=== PATIENT | female | born 1980 | race Caucasian/White ===

== ENCOUNTER 2020-09-24 15:08 | Emergency (ER) | payer SELFPAY | END 2020-09-24 18:33 | disposition left against medical advice (07) | PROVIDERS: Emergency Provider Internal Medicine | DX: R10.9 Unspecified abdominal pain (principal) ==

== ENCOUNTER 2021-07-19 14:36 | Emergency (ER) | payer OTHER, SELFPAY ==
--- NOTE | ~2021-07-19 | US_ITS ---
EXAMINATION: PELVIC ULTRASOUND - COMPLETE CLINICAL INFORMATION: Left lower quadrant pain. COMPARISON: CT dated 07/19/2021 TECHNIQUE: Transabdominal and transvaginal imaging of the pelvis performed utilizing grayscale and color Doppler technique with spectral analysis. FINDINGS: Uterus is normal in size and configuration measuring 9.1 x 5.3 x 5.5 cm. There is a 2.4 x 1.7 x 1.5 cm fibroid within the left uterine fundus. Endometrial signature measures 1.0 cm which is within normal limits. Nabothian cysts present within the cervix. There is a 4.6 x 3.8 x 3.5 cm cyst containing lacy reticular internal echoes compatible with a hemorrhagic cyst. The right ovary is splayed around the cyst shows normal arterial and venous waveforms. Right ovary is normal in size and appearance, also demonstrating normal arterial and venous waveforms. Small free fluid. US/US pelvic ovarian doppler IMPRESSION: * No evidence of ovarian torsion. * Left ovarian hemorrhagic cyst measuring 4.6 cm. No suspicious features. Follow-up for cysts of this size and appearance in females of reproductive age is not necessary unless clinically indicated. * Small uterine fibroid.
--- NOTE | ~2021-07-19 | US_ITS ---
EXAMINATION: PELVIC ULTRASOUND - COMPLETE CLINICAL INFORMATION: Left lower quadrant pain. COMPARISON: CT dated 07/19/2021 TECHNIQUE: Transabdominal and transvaginal imaging of the pelvis performed utilizing grayscale and color Doppler technique with spectral analysis. FINDINGS: Uterus is normal in size and configuration measuring 9.1 x 5.3 x 5.5 cm. There is a 2.4 x 1.7 x 1.5 cm fibroid within the left uterine fundus. Endometrial signature measures 1.0 cm which is within normal limits. Nabothian cysts present within the cervix. There is a 4.6 x 3.8 x 3.5 cm cyst containing lacy reticular internal echoes compatible with a hemorrhagic cyst. The right ovary is splayed around the cyst shows normal arterial and venous waveforms. Right ovary is normal in size and appearance, also demonstrating normal arterial and venous waveforms. Small free fluid. US/US pelvic complete IMPRESSION: * No evidence of ovarian torsion. * Left ovarian hemorrhagic cyst measuring 4.6 cm. No suspicious features. Follow-up for cysts of this size and appearance in females of reproductive age is not necessary unless clinically indicated. * Small uterine fibroid.
--- NOTE | ~2021-07-19 | CT_ITS ---
EXAMINATION: CT ABDOMEN AND PELVIS WITH CONTRAST CLINICAL INFORMATION: LLQ pain, rule out diverticulitis COMPARISON: None. TECHNIQUE: Multidetector volumetric imaging was performed from the superior aspect of the liver through the pubic symphysis following administration of 85 mL Omnipaque 300 intravenous contrast. Sagittal and coronal reformatted images were obtained on the technologist workstation.. This CT examination was performed using dose optimization techniques as appropriate, variously including the following: *Automated exposure control *Adjustment of mA and/or kV according to patient size (this includes techniques or standardized protocols for targeted exams where dose is matched to indication/reason for exam; i.e. extremities or head) *Use of iterative reconstruction technique DLP: 1076 mGy-cm FINDINGS: LUNG BASES: The visualized lung bases are unremarkable. LIVER, GALLBLADDER, AND BILIARY TREE: The liver is normal in size, shape, and attenuation. No focal hepatic lesion or biliary ductal dilatation is present. The gallbladder is unremarkable with no evidence of radiopaque gallstones, gallbladder wall thickening, or obvious pericholecystic inflammatory changes. PANCREAS: Unremarkable. SPLEEN: Low-attenuation 1.7 cm splenic cyst incidentally noted. ADRENAL GLANDS: Unremarkable. KIDNEYS AND URETERS: The kidneys are normal in size, shape, and attenuation. No hydronephrosis, hydroureter, or calculi seen. No perinephric stranding. BLADDER: Unremarkable. GASTROINTESTINAL TRACT: Sigmoid colon is decompressed. There is scattered diverticulosis. No obvious colonic wall thickening or pericolonic inflammatory change to suggest diverticulitis otherwise. ABDOMINAL WALL: No significant hernia is appreciated. LYMPHOVASCULAR STRUCTURES: No lymphadenopathy. The aorta is unremarkable. PELVIC VISCERA: Anteroverted uterus. Small hypodense probable fibroid in the anterior mid body the uterus. 4.7 cm low-attenuation cystic structure in the left adnexa. There is mild surrounding periadnexal fluid. This is in close proximity to the decompressed sigmoid colon fluid is be more associated with the adnexal structures OSSEOUS STRUCTURES: Unremarkable. CT/CT abdomen pelvis w con IMPRESSION: There is a 4.7 cm low-attenuation cystic structure in the left adnexa with surrounding fluid. Large physiologic cyst would be suspected in the patient of this age. There is surrounding fluid more than physiologic. Clinical correlation recommended. Consider pelvic ultrasound if needed. Scattered diverticulosis but no obvious diverticulitis.
--- NOTE | ~2021-07-19 | US_ITS ---
EXAMINATION: PELVIC ULTRASOUND - COMPLETE CLINICAL INFORMATION: Left lower quadrant pain. COMPARISON: CT dated 07/19/2021 TECHNIQUE: Transabdominal and transvaginal imaging of the pelvis performed utilizing grayscale and color Doppler technique with spectral analysis. FINDINGS: Uterus is normal in size and configuration measuring 9.1 x 5.3 x 5.5 cm. There is a 2.4 x 1.7 x 1.5 cm fibroid within the left uterine fundus. Endometrial signature measures 1.0 cm which is within normal limits. Nabothian cysts present within the cervix. There is a 4.6 x 3.8 x 3.5 cm cyst containing lacy reticular internal echoes compatible with a hemorrhagic cyst. The right ovary is splayed around the cyst shows normal arterial and venous waveforms. Right ovary is normal in size and appearance, also demonstrating normal arterial and venous waveforms. Small free fluid. US/US transvaginal IMPRESSION: * No evidence of ovarian torsion. * Left ovarian hemorrhagic cyst measuring 4.6 cm. No suspicious features. Follow-up for cysts of this size and appearance in females of reproductive age is not necessary unless clinically indicated. * Small uterine fibroid.
[2021-07-19 15:10] VITALS: BP 138/93; PULSE 84; RESP 18; TEMP 36.7; O2SAT 98; BMI 46.0
[2021-07-19 16:48] LABS: MANUAL DIFF FLAG NO
[2021-07-19 16:49] LABS: Basophils Absolute Auto 0.1 X10*3/uL (0.0-0.2); Basophils Percent Auto 0.7 % (0-2); Eosinophils Absolute Auto 0.1 X10*3/uL (0.0-0.4); Eosinophils Percent Auto 1.1 % (0-4); Hemoglobin 13.4 g/dl (12.0-16.0); Imm Gran Abs Auto 0.03 X10*3/uL (0.00-0.03); Imm Gran Pct Auto 0.3 % (0.0-0.4); Lymphocytes Percent Auto 28.8 % (20-40); Mean Corpuscular HGB Conc 32.7 g/dl (31.0-35.0); Mean Corpuscular Hemoglobin 27.5 pg (27.0-33.0); Mean Platelet Volume 9.8 fL (9.4-12.3); Monocytes Absolute Auto 0.6 X10*3/uL (0.1-1.2); Neutrophils Absolute Auto 6.5 x10*3/uL (2.0-8.3); Neutrophils Percent Auto 63.1 % (45-73); Platelet Count 410 X10*3/uL (160-400); Red Blood Count 4.88 X10*6/uL (4.20-5.50); Red Cell Distribution Width 13.3 % (11.0-16.0); White Blood Count 10.3 X10*3/uL (4.8-10.8)
[2021-07-19 16:51] LABS: Appearance Urine CLEAR; Color Urine YELLOW; Glucose Urine UA NEG (NEG); Leukocyte Esterase Urine NEG (NEG); Nitrite Urine NEG (NEG); UACC Culture Trigger NO; UPreg QC Valid YES; Urine Blood TRACE (NEG); Urine Ketones NEG (NEG); Urine Pregnancy NEGATIVE (NEGATIVE); Urine Protein NEG (NEG-TRACE)
[2021-07-19 16:58] LABS: Bacteria Urine 1+ /LPF; RBC Urine 0-2 /HPF (0); Squamous Epithelial Cell Urine 2+ /LPF; WBC Urine 0 /HPF (0-4)
[2021-07-19 17:03] LABS: Alanine Aminotransferase 13 U/L (0-31); Albumin Level 4.3 g/dL (3.5-5.0); Alkaline Phosphatase 91 U/L (39-117); Anion Gap 13 (12-20); Aspartate Amino Transferase 13 U/L (5-31); Bilirubin Total 0.4 mg/dL (0.0-1.0); Blood Urea Nitrogen 8 mg/dL (9-16); Calcium 9.6 mg/dL (8.4-10.2); Carbon Dioxide 23 mmol/L (22-29); Chloride 107 mmol/L (96-108); Creatinine Clr Calc Pharmacy 105.3; Estimated Glomerular Filt Rate > 60; Glucose Random 90 mg/dL (60-115); Potassium 4.3 mmol/L (3.3-5.1); Sodium 139 mmol/L (135-145); Total Protein 7.6 g/dL (6.5-8.0)
--- NOTE | 2021-07-19 20:58 | ED.ABDPAIN ---
HPI - Abdominal Pain General Chief Complaint: Abdominal Pain Stated Complaint: l side lower pain Time Seen by Provider: 07/19/21 20:44 Source: patient Mode of arrival: ambulatory Limitations: no limitations History of Present Illness HPI narrative: 40-year-old female who presents emergency department for evaluation of left lower quadrant pain x4 days. The pain is an intermittent, stabbing, cramping like pain which is 9/10 at its worse and is currently 7/10 in the emergency department. The patient states that pain feels similar to her diverticulitis that she has had in the past. She states she has had 3 episodes of diverticulitis, 1 episode she had perforation was hospitalized for several weeks but did not have surgery. The patient states that she has had constant nausea with no vomiting. The patient states that she does have an appetite but has been using clear liquids only but this is not improved her pain. The patient states she is constipated but did have a normal bowel movement this morning. The patient denied fever, chills, chest pain, shortness of breath, frequency, urgency, dysuria. Past surgical history: 2005. Related Data Allergies Allergy/AdvReac Type Severity Reaction Status Date / Time Sulfa (Sulfonamide Allergy Rash Verified 07/19/21 15:15 Antibiotics) Review of Systems Review of Systems Yes all other systems are reviewed and are negative Physical Exam Vital Signs: Vital Signs: Last Vital Signs Temp 98.4 F 07/19/21 23:20 Pulse 87 07/19/21 23:20 Resp 16 07/19/21 23:20 BP 133/70 07/19/21 23:20 Pulse Ox 97 07/19/21 23:20 BMI result Body Mass Index 46.0 Const: General: cooperative and no acute distress Orientation/consciousness: oriented to person and oriented to place Limitations: no limitations HENMT: Head: Yes normal to inspection, Yes normocephalic and Yes atraumatic Ears: external ears normal General nose exam: Normal external nose present Face and sinus: Yes normal facial exam Mouth: Normal oral and palatal mucosa present Throat: Yes posterior oropharynx normal Eyes: General: appearance normal, both eyes and all related structures Pupils: Equal, round and reactive pupils present Neck: Neck: Yes normal visual inspection, Yes no lymphadenopathy, Yes trachea midline and Yes supple Chest: Chest palpation & inspection: normal inspection of the chest and normal palpation of entire chest wall Resp: Effort & Inspection: normal respiratory effort and able to speak in complete sentences Auscultation: clear to auscultation bilaterally Cardio: Rate: regular rate Rhythm: regular rhythm Heart sounds: S1 normal heart sound present, S2 normal heart sound present and no murmurs GI: Inspection: Yes normal to inspection and Yes obesity Palpation (GI): Soft to palpation, Tenderness to palpation present (GI) in the LLQ (Moderate) and no guarding Auscultation: normal bowel sounds : General: Yes no CVA tenderness Back/Spine/Pelvis: Back: no CVA tenderness Skin: General skin exam: no rashes or lesions noted Neuro: General: oriented to person and oriented to place Cranial nerves: Yes CN's II-XII intact bilaterally and Yes Equal, round and reactive pupils present Cognition (Neuro): normal cognition Motor exam (neuro): 5/5 motor strength present throughout Extrem: General: Yes normal to inspection Psych: Appearance: grossly normal Speech and movement: Normal speech and movement present Affect: normal affect Attitude: cooperative Thought process: Normal thought process present Thought content: Normal thought content present Course Course Course Narrative: 40-year-old female who presents emergency department for evaluation of 4 days of left lower quadrant intermittent stabbing/cramping pain consistent with her previous diverticulitis. Patient's pain is currently 7/10 at the time my evaluation. Initial vital signs were normal. Examination did reveal left lower quadrant tenderness. Patient's pain was treated with Toradol 15 mg IV and her nausea was treated with Zofran 4 mg IV. The patient does not want any normal saline since she states this gives her headache. 2102: Laboratory evaluation: CBC, comprehensive metabolic panel normal. Urinalysis was unremarkable. Urine test was negative. I will obtain a CT scan the patient's abdomen pelvis to evaluate for diverticulitis/perforation/abscess. 0125: Patient's lipase was normal. The patient's CT scan of the abdomen pelvis did reveal a left 4.7 cm ovarian cyst with fluid around the cyst. There was diverticulosis but no evidence of diverticulitis. Duplex ultrasound of the patient's pelvis revealed no ovarian torsion, the patient does have a 4.6 cm left ovarian cyst which appears to be hemorrhagic. This may be the cause of the patient's pain. I did discuss this with the patient. Patient did get improvement with the IV Toradol. Patient was advised to take ibuprofen and Tylenol for the pain. She was given verbal and printed instructions and discharged home. MDM - Abdominal Pain Lab Data Result diagrams: 07/19/21 16:41 07/19/21 16:41 Labs: Lab Results 07/19/21 07/19/21 07/19/21 Range/Units 16:41 16:41 16:41 WBC 10.3 (4.8-10.8) X10*3/uL RBC 4.88 (4.20-5.50) X10*6/uL Hgb 13.4 (12.0-16.0) g/dl Hct 41.0 (37.0-47.0) % MCV 84.0 (80.0-98.0) fL MCH 27.5 (27.0-33.0) pg MCHC 32.7 (31.0-35.0) g/dl RDW 13.3 (11.0-16.0) % Plt Count 410 H (160-400) X10*3/uL MPV 9.8 (9.4-12.3) fL Immature Gran % (Auto) 0.3 (0.0-0.4) % Neut % (Auto) 63.1 (45-73) % Lymph % (Auto) 28.8 (20-40) % [place] % (Auto) 6.0 (2-11) % Eos % (Auto) 1.1 (0-4) % Baso % (Auto) 0.7 (0-2) % Lymph # (Auto) 3.0 (1.2-4.9) X10*3/uL [place] # (Auto) 0.6 (0.1-1.2) X10*3/uL Eos # (Auto) 0.1 (0.0-0.4) X10*3/uL Baso # (Auto) 0.1 (0.0-0.2) X10*3/uL Abs Immat Gran (auto) 0.03 (0.00-0.03) X10*3/uL Absolute Neuts (auto) 6.5 (2.0-8.3) x10*3/uL Absolute Nucleated RBC 0.000 (0.0-0.012) X10*3/uL Nucleated RBC % (auto) 0.0 (0.0-0.2) /100WBC Sodium 139 (135-145) mmol/L Potassium 4.3 (3.3-5.1) mmol/L Chloride 107 (96-108) mmol/L Carbon Dioxide 23 (22-29) mmol/L Anion Gap 13 (12-20) BUN 8 L (9-16) mg/dL Creatinine 0.89 (0.5-1.4) mg/dL Estim Creat Clear Calc 105.3 Estimated GFR > 60 Random Glucose 90 (60-115) mg/dL Calcium 9.6 (8.4-10.2) mg/dL Total Bilirubin 0.4 (0.0-1.0) mg/dL AST 13 (5-31) U/L ALT 13 (0-31) U/L Alkaline Phosphatase 91 (39-117) U/L Total Protein 7.6 (6.5-8.0) g/dL Albumin 4.3 (3.5-5.0) g/dL Lipase 37 (8-78) U/L Urine Color YELLOW Urine Appearance CLEAR Urine pH 6.0 (5.0-8.0) Ur Specific [place] 1.010 (1.005-1.025) Urine Protein NEG (NEG-TRACE) MG/DL Urine Glucose (UA) NEG (NEG) MG/DL Urine Ketones NEG (NEG) MG/DL Urine Blood TRACE (NEG) Urine Nitrite NEG (NEG) Ur Leukocyte Esterase NEG (NEG) Urine RBC 0-2 (0) /HPF Urine WBC 0 (0-4) /HPF Ur Squamous Epith Cells 2+ /LPF Urine Bacteria 1+ /LPF Urine Test (NEGATIVE) 07/19/21 Range/Units 16:41 WBC (4.8-10.8) X10*3/uL RBC (4.20-5.50) X10*6/uL Hgb (12.0-16.0) g/dl Hct (37.0-47.0) % MCV (80.0-98.0) fL MCH (27.0-33.0) pg MCHC (31.0-35.0) g/dl RDW (11.0-16.0) % Plt Count (160-400) X10*3/uL MPV (9.4-12.3) fL Immature Gran % (Auto) (0.0-0.4) % Neut % (Auto) (45-73) % Lymph % (Auto) (20-40) % [place] % (Auto) (2-11) % Eos % (Auto) (0-4) % Baso % (Auto) (0-2) % Lymph # (Auto) (1.2-4.9) X10*3/uL [place] # (Auto) (0.1-1.2) X10*3/uL Eos # (Auto) (0.0-0.4) X10*3/uL Baso # (Auto) (0.0-0.2) X10*3/uL Abs Immat Gran (auto) (0.00-0.03) X10*3/uL Absolute Neuts (auto) (2.0-8.3) x10*3/uL Absolute Nucleated RBC (0.0-0.012) X10*3/uL Nucleated RBC % (auto) (0.0-0.2) /100WBC Sodium (135-145) mmol/L Potassium (3.3-5.1) mmol/L Chloride (96-108) mmol/L Carbon Dioxide (22-29) mmol/L Anion Gap (12-20) BUN (9-16) mg/dL Creatinine (0.5-1.4) mg/dL Estim Creat Clear Calc Estimated GFR Random Glucose (60-115) mg/dL Calcium (8.4-10.2) mg/dL Total Bilirubin (0.0-1.0) mg/dL AST (5-31) U/L ALT (0-31) U/L Alkaline Phosphatase (39-117) U/L Total Protein (6.5-8.0) g/dL Albumin (3.5-5.0) g/dL Lipase (8-78) U/L Urine Color Urine Appearance Urine pH (5.0-8.0) Ur Specific [place] (1.005-1.025) Urine Protein (NEG-TRACE) MG/DL Urine Glucose (UA) (NEG) MG/DL Urine Ketones (NEG) MG/DL Urine Blood (NEG) Urine Nitrite (NEG) Ur Leukocyte Esterase (NEG) Urine RBC (0) /HPF Urine WBC (0-4) /HPF Ur Squamous Epith Cells /LPF Urine Bacteria /LPF Urine Test NEGATIVE (NEGATIVE) Discharge Plan Discharge Clinical Impression: Hemorrhagic cyst of left ovary Abdominal pain Qualifiers: Abdominal location: left lower quadrant Qualified Code(s): R10.32 - Left lower quadrant pain Patient Disposition: Home, Self-Care Instructions: Ovarian Cyst (ED) Additional Instructions: Your laboratory evaluation was unremarkable. The CT scan of your abdomen pelvis revealed that she had a 4.7 cm left ovarian cyst with fluid around the cyst. You have diverticulosis but no evidence for diverticulitis. The Doppler ultrasound of your pelvis revealed a 4.6 cm ovarian cyst similar to with the CT scan showed. The radiologist thought that the fluid within the cyst with like blood and this is consistent with a hemorrhagic cyst, sometimes these can cause acute pain. There was no evidence for ovarian torsion. Take ibuprofen 200 mg pills, 3 pills every 6 hours for pain for the next 4 days, then as needed. Take Tylenol (acetaminophen) 500 mg pills, 2 pills every 4 to 6 hours as needed for pain. Follow-up with your OBGYN doctor in 2-4 days. Please return to the emergency department if your symptoms get worse or if you develop any symptoms that are concerning to you. [facility] Past Medical History [facility] Narrative: Past medical history: Diverticulitis x3 episodes, 1 episode with perforation not requiring surgery but hospitalization for weeks. Past surgical history: 2005. Social history: The patient denies tobacco, she only occasionally drinks alcohol alcohol and she denies drug use. Social History Social History Advance Directives: No
[2021-07-19 21:10] LABS: Lipase 37 U/L (8-78)
[2021-07-19] MEDS: ondansetron HCL 4 MG/2 ML VIAL IVPUSH (21:16)
[2021-07-19] MEDS: Ketorolac Tromethamine 30 MG/ML VIAL 15 MG IVPUSH (21:16)
[2021-07-19] MEDS: iohexoL 350 MG/ML 100 ML INFUS..BTL IV (22:09)
[2021-07-19 23:20] VITALS: BP 133/70; PULSE 87; RESP 16; TEMP 36.9; O2SAT 97
--- NOTE | 2021-07-20 00:05 | PC.NURSE ---
Pt aaox4, resting on stretcher in NAD, breathing with ease on RA, VSS. Pt reports 1/10 pain as charted, is aware of plan for US. pt ambulates with steady independent gait, being transported to at this time. Pt stretcher in lowest locked position in room, side rails raised, call solomon within reach.
[2021-07-20 01:38] VITALS: BP 114/70; PULSE 69; RESP 16; O2SAT 97
== END 2021-07-20 01:46 | disposition home or self-care (01) ==
PROVIDERS: Emergency Provider Emergency Medicine Emergency Medical Services
DX: N83.202 Unspecified ovarian cyst, left side (principal); R10.32 Left lower quadrant pain; R11.0 Nausea
CPT/HCPCS: 36415; 74177; 76830; 76856; 80053; 81001; 81025; 83690; 85025; 93975; 96374; 96375; 99284; J1885; J2405; Q9967